=== PATIENT | male | born 1995 | race Caucasian/White ===

== ENCOUNTER 2017-04-15 11:01 | Inpatient (IN) ==
--- NOTE | 2017-04-15 11:11 | Emergency Department Note ---
Disposition Clinical Impression: Suicidal ideation Disposition: Admitted As Inpatient Condition: Good Referrals: NONE,PCP [Primary Care Provider] - Time of Disposition: 12:33 Psych HPI - General Chief Complaint: ED Psychiatric Symptoms Stated Complaint: WANTS [facility] TO COME GET HIM. H/I & S/I Time Seen by Provider: 04/15/17 11:05 Source: patient, EMS Mode of arrival: EMS Limitations: no limitations Nursing Notes Reviewed: Yes Vital Signs Reviewed: Yes - History of Present Illness HPI Narrative: 21-year-old male history of psychiatric illness resents to the ED via EMS from a halfway at [facility] for psychiatric evaluation. He reports suicidal and homicidal ideation. Supposedly patient attempted to summon [facility]. He denies any physical complaints. States he feels hopeless as he has no one to talk to. One of the directors from the group [employer] present at the room to assist with a history. States today he was acting himself being very violent voicing threats of hurting others as well as himself. Her holes in the wall as he is torn up his room. Yesterday he was speaking to Lucifer. Today he has been seen watching [employer] videos on different ways to attempt suicide. One of the videos was a man placing a gun in his mouth. He denies any plan at this time. Denies any overdose of his medication. He has been taking his medication as he has been monitored. No alcohol or recreational drug use. He was place in the halfway 6 months ago as a child the state. No prior evaluation here. No history of suicide attempts. Denies any headache, chest pain, shortness of breath, abdominal pain. No extremity pain. No obvious signs of trauma. Pt complaint: suicidal ideation, feels depressed - Related Data Allergies Allergy/AdvReac Type Severity Reaction Status Date / Time No Known Allergies Allergy Verified 04/15/17 11:23 All systems ED: reviewed and negative except as stated. Review of Systems: As Per HPI Constitutional: Denies: fever, chills Eyes: Denies: vision change Cardiovascular: Denies: chest pain, palpitations Respiratory: Denies: cough, dyspnea Gastrointestinal: Denies: abdominal pain, nausea, vomiting Genitourinary: Denies: urgency, dysuria Musculoskeletal: Denies: back pain, neck pain Integumentary: Denies: rash, abrasion, lesions Neurological: Denies: headache, weakness Psychiatric: Reports: anxiety, depression, suicidal thoughts, homicidal thoughts Past Medical History - Past Medical History Attestation: Yes The following information was validated with the patient. Source: patient Medical history: Reports: no medical history Psychiatric history: Reports: depression - Social History Smoking Status: Never smoker Smokeless Tobacco Status: No Alcohol use: Reports: none Drug use: Reports: none Physical Exam - General Limitations: no limitations General appearance: alert, in no apparent distress - Head Head exam: atraumatic, normocephalic, normal inspection - Eye Eye exam: Present: normal appearance, PERRL, EOMI - ENT ENT exam: normal exam, normal oropharynx, mucous membranes moist - Neck Neck exam: Present: normal inspection, full ROM, trachea midline. Absent: tenderness - Chest Chest inspection: Present: normal inspection, symmetric chest wall rise. Absent : tenderness - Respiratory Respiratory exam: Present: normal lung sounds bilaterally. Absent: respiratory distress, wheezes - Cardiovascular Cardiovascular exam: Present: regular rate, normal rhythm, normal heart sounds - Abdominal Exam Abdominal exam: Present: soft, Non-Tender, normal bowel sounds. Absent: tenderness, distention, guarding, rebound, rigidity - Extremities Exam Extremities exam: Present: normal inspection, full ROM, normal capillary refill. Absent: tenderness, pedal edema - Expanded Upper Extremity Exam Shoulder exam: Present: normal inspection, full ROM. Absent: tenderness Arm exam: Present: normal inspection, full ROM. Absent: tenderness Elbow exam: Present: normal inspection, full ROM. Absent: tenderness Forearm/Wrist exam: Present: normal inspection, full ROM. Absent: tenderness Hand exam: Present: normal inspection, full ROM. Absent: tenderness Vascular exam: Normal: capillary refill, radial pulse - Expanded Lower Extremity Exam Hip/Pelvis exam: Present: normal inspection, full ROM. Absent: tenderness Upper leg exam: Present: normal inspection, full ROM. Absent: tenderness Knee exam: Present: normal inspection, full ROM. Absent: tenderness Lower leg exam: Present: normal inspection, full ROM. Absent: tenderness Ankle exam: Present: normal inspection, full ROM. Absent: tenderness Foot/toe exam: Present: normal inspection, full ROM. Absent: tenderness Neurovascular/Tendon exam: Present: normal capillary refill. Absent: motor deficit, sensory deficit, tendon deficit - Back Exam Back exam: Present: normal inspection, full ROM. Absent: tenderness, vertebral tenderness - Neurological Exam Neurological exam: Present: alert, oriented X3, CN II-XII intact - Expanded Neurological Exam Patient oriented to: Present: person, place, time Speech: Present: fluid speech Cranial nerves: EOM function (II, III, IV, ): Normal, facial sensation (V): Normal, facial palsy (VII): Normal, gag reflex (IX): Normal, spinal accessory function (XI): Normal, tongue deviation (XII): Normal Cerebellar function: normal gait Motor strength - LUE: 5/5 Motor strength - RUE: 5/5 Motor strength - LLE: 5/5 Motor strength - RLE: 5/5 Upper motor neuron exam: nasreen neglect: Absent bilaterally Sensory exam upper extremity: light touch: Normal Sensory exam lower extremity: light touch: Normal - Psychiatric Psychiatric exam: Present: depressed, flat affect, homicidal ideation, suicidal ideation - Skin Skin exam: Present: warm, dry, intact, normal color Course - Reevaluation(s) Reevaluation #1: psychiatry called at 1132 for evaluation. Currently in the room evaluating the patient. Labs are unremarkable. No drugs found in the urine. Time: 11:40 Reevaluation #2: Patient has been accepted for admission to . Request pink slip, form was filled out by myself. Patient is in stable condition, appropriate for admission. Impression is suicidal ideation. Time: 12:34 Vital Signs Temperature 98.5 F 04/15/17 11:03 Pulse Rate 73 04/15/17 11:03 Respiratory Rate 16 04/15/17 11:03 Blood Pressure 117/76 04/15/17 11:03 O2 Sat by Pulse Oximetry 97 04/15/17 11:03 Temperature 98.5 F 04/15/17 11:03 Pulse Rate 73 04/15/17 11:03 Respiratory Rate 16 04/15/17 11:03 Blood Pressure 117/76 04/15/17 11:03 O2 Sat by Pulse Oximetry 97 04/15/17 11:03 Oxygen Delivery Oxygen Delivery Room Air Psych - Lab Data Lab results reviewed: Yes I reviewed the patient's lab results. Result diagrams: 04/15/17 11:17 04/15/17 11:17 Lab Results 04/15/17 04/15/17 04/15/17 Range/Units 11:11 11:11 11:17 WBC 7.5 (4.3-11.1) K/mcL RBC 4.64 (4.19-5.50) M/mcL Hgb 14.1 (12.9-16.9) g/dL Hct 41.5 (37.5-50.1) % MCV 89.4 (83.0-100.0) fL MCH 30.4 (28.0-33.3) pg MCHC 34.0 (31.6-35.5) g/dL RDW 12.2 (11.5-14.5) % Plt Count 209 (140-400) K/mcL MPV 10.2 (9.4-12.4) fL Immature Gran % 1.1 (0-4) % Seg Neutrophils % 51.3 % Lymphocytes % 35.2 % Monocytes % 8.3 % Eosinophils % 3.4 % Basophils % 0.7 % Neutrophils # 3.8 (1.6-8.9) K/mcL Lymphocytes # 2.6 (0.6-4.6) K/mcL Monocytes # 0.6 (0.0-1.3) K/mcL Eosinophils # 0.3 (0.0-0.6) K/mcL Basophils # 0.1 (0.0-0.2) K/mcL Sodium (136-145) mEq/L Potassium (3.5-4.5) mEq/L Chloride (98-109) mEq/L Carbon Dioxide (19-29) mEq/L BUN (8-26) mg/dL Creatinine (0.72-1.25) mg/dL Est GFR ( Amer) Est GFR (Non-Af Amer) BUN/Creatinine Ratio (6-26) Glucose (70-99) mg/dL Calculated Osmolality (280-300) Calcium (8.6-10.8) mg/dL Ur Specimen Adequacy See below A Urine Color Yellow (Yellow) Urine Clarity Clear (Clear) Urine pH 7.5 (5.0-8.0) pH Units Ur Specific [place] 1.013 (1.010-1.025) Urine Protein Trace (Neg-Trace) mg/dL Urine Glucose (UA) Normal (Normal) mg/dL Urine Ketones Negative (Negative) mg/dL Urine Blood Negative (Negative) Urine Nitrite Negative (Negative) Urine Bilirubin Negative (Negative) Urine Urobilinogen Normal (Normal) mg/dL Ur Leukocyte Esterase Negative (Negative) Salicylates (15-30) mg/dL Urine Opiates Screen Negative (Bwqgje=828) ng/mL Acetaminophen (10-30) mcg/mL Ur Barbiturates Screen Negative (Odelcy=960) ng/mL Ur Phencyclidine Scrn Negative (Cutoff=25) ng/mL Ur Amphetamines Screen Negative (Eouijv=8243) ng/mL U Benzodiazepines Scrn Negative (Tfaclc=619) ng/mL Urine Cocaine Screen Negative (Cutoff= 300) ng/mL U Marijuana (THC) Screen Negative (Cutoff = 50) ng/mL Ethyl Alcohol (0-10) mg/dL 04/15/17 Range/Units 11:17 WBC (4.3-11.1) K/mcL RBC (4.19-5.50) M/mcL Hgb (12.9-16.9) g/dL Hct (37.5-50.1) % MCV (83.0-100.0) fL MCH (28.0-33.3) pg MCHC (31.6-35.5) g/dL RDW (11.5-14.5) % Plt Count (140-400) K/mcL MPV (9.4-12.4) fL Immature Gran % (0-4) % Seg Neutrophils % % Lymphocytes % % Monocytes % % Eosinophils % % Basophils % % Neutrophils # (1.6-8.9) K/mcL Lymphocytes # (0.6-4.6) K/mcL Monocytes # (0.0-1.3) K/mcL Eosinophils # (0.0-0.6) K/mcL Basophils # (0.0-0.2) K/mcL Sodium 141 (136-145) mEq/L Potassium 4.0 (3.5-4.5) mEq/L Chloride 103 (98-109) mEq/L Carbon Dioxide 33 H (19-29) mEq/L BUN 8 (8-26) mg/dL Creatinine 0.77 (0.72-1.25) mg/dL Est GFR ( Amer) > 60 Est GFR (Non-Af Amer) > 60 BUN/Creatinine Ratio 10 (6-26) Glucose 89 (70-99) mg/dL Calculated Osmolality 290 (280-300) Calcium 10.1 (8.6-10.8) mg/dL Ur Specimen Adequacy Urine Color (Yellow) Urine Clarity (Clear) Urine pH (5.0-8.0) pH Units Ur Specific [place] (1.010-1.025) Urine Protein (Neg-Trace) mg/dL Urine Glucose (UA) (Normal) mg/dL Urine Ketones (Negative) mg/dL Urine Blood (Negative) Urine Nitrite (Negative) Urine Bilirubin (Negative) Urine Urobilinogen (Normal) mg/dL Ur Leukocyte Esterase (Negative) Salicylates < 5.0 L (15-30) mg/dL Urine Opiates Screen (Tafyji=518) ng/mL Acetaminophen < 1.0 L (10-30) mcg/mL Ur Barbiturates Screen (Vprzru=163) ng/mL Ur Phencyclidine Scrn (Cutoff=25) ng/mL Ur Amphetamines Screen (Ajjwaa=6137) ng/mL U Benzodiazepines Scrn (Cvdyfc=651) ng/mL Urine Cocaine Screen (Cutoff= 300) ng/mL U Marijuana (THC) Screen (Cutoff = 50) ng/mL Ethyl Alcohol < 10 (0-10) mg/dL Psychiatric Medical Clearance - Medical Clearance Checklist Medical History: No Social History Section defined Current Vitals: Last Vital Signs Temp 98.5 F 04/15/17 11:03 Pulse 73 04/15/17 11:03 Resp 16 04/15/17 11:03 BP 117/76 04/15/17 11:03 Pulse Ox 97 04/15/17 11:03 Psychiatric Lab Panel: Drug Levels and Toxicity 04/15/17 04/15/17 11:11 11:17 Urine Opiates Screen Negative Acetaminophen < 1.0 L Ur Barbiturates Screen Negative Ur Phencyclidine Scrn Negative Ur Amphetamines Screen Negative U Benzodiazepines Scrn Negative Urine Cocaine Screen Negative U Marijuana (THC) Screen Negative Ethyl Alcohol < 10 Abnormal Labs: Abnormal lab results Carbon Dioxide 33 mEq/L (19-29) H 04/15/17 11:17 Ur Specimen Adequacy See below A 04/15/17 11:11 Salicylates < 5.0 mg/dL (15-30) L 04/15/17 11:17 Acetaminophen < 1.0 mcg/mL (10-30) L 04/15/17 11:17 Statement of Medical Clearance: I have evaluated the patient, reviewed diagnostic information, and certify that the patient's medical condition is sufficiently stable that transfer to the psychiatric unit does not pose a significant risk of deterioration.
[2017-04-15 11:25] LABS: Amphetamine Screen,Urine Negative ng/mL (Cutoff=1000); Barbiturate Screen,Urine Negative ng/mL (Cutoff=200); Benzodiazepines Screen,Urine Negative ng/mL (Cutoff=200); Cannabinoid Screen,Urine Negative ng/mL (Cutoff = 50); Cocaine Screen,Urine Negative ng/mL (Cutoff= 300); Opiate Screen,Urine Negative ng/mL (Cutoff=300); Phencyclidine Screen,Urine Negative ng/mL (Cutoff=25)
[2017-04-15 11:26] LABS: Bilirubin,Urine Negative (Negative); Blood,Urine Negative (Negative); Color,Urine Yellow (Yellow); Glucose,Urine (UA) Normal (Normal); Ketones,Urine Negative (Negative); Leukocyte Esterase,Urine Negative (Negative); Nitrite,Urine Negative (Negative); PH,Urine 7.5 pH Units (5.0-8.0); Protein,Urine Trace mg/dL (Neg-Trace); Specific Gravity,Urine 1.013 (1.010-1.025); Urobilinogen,Urine Normal (Normal)
[2017-04-15 11:26] LABS: Basophils # 0.1 K/mcL (0.0-0.2); Basophils % 0.7 %; Eosinophils # 0.3 K/mcL (0.0-0.6); Eosinophils % 3.4 %; Hematocrit 41.5 % (37.5-50.1); Hemoglobin 14.1 g/dL (12.9-16.9); Immature Granulocytes % 1.1 % (0-4); Lymphocytes # 2.6 K/mcL (0.6-4.6); Lymphocytes % 35.2 %; Mean Corpuscular Hemoglobin 30.4 pg (28.0-33.3); Mean Corpuscular Volume 89.4 fL (83.0-100.0); Mean Platelet Volume 10.2 fL (9.4-12.4); Monocytes # 0.6 K/mcL (0.0-1.3); Monocytes % 8.3 %; Neutrophils # 3.8 K/mcL (1.6-8.9); Platelet Count 209 K/mcL (140-400); Red Blood Count 4.64 M/mcL (4.19-5.50); Red Cell Distribution Width 12.2 % (11.5-14.5); Segmented Neutrophils % 51.3 %
[2017-04-15 11:27] LABS: Clarity,Urine Clear (Clear)
[2017-04-15 11:40] LABS: BUN/Creatinine Ratio 10 (6-26); Blood Urea Nitrogen 8 mg/dL (8-26); Calcium 10.1 mg/dL (8.6-10.8); Carbon Dioxide 33 mEq/L (19-29); Chloride 103 mEq/L (98-109); Glucose 89 mg/dL (70-99); Osmolality,Calculated 290 (280-300); Sodium 141 mEq/L (136-145); eGFR For African Americans > 60; eGFR For Non-African Americans > 60
[2017-04-15 11:41] LABS: Acetaminophen < 1.0 mcg/mL (10-30); Ethanol < 10 mg/dL (0-10); Salicylate < 5.0 mg/dL (15-30)
--- NOTE | 2017-04-15 12:32 | Emergency Department Note ---
Disposition Clinical Impression: Suicidal ideation Disposition: Admitted As Inpatient Condition: Good General Adult HPI - General Chief complaint: ED Psychiatric Symptoms Stated complaint: TRIED TO [employer] [employer] Time Seen by Provider: 04/15/17 11:05 Source: patient, EMS Mode of arrival: EMS Limitations: no limitations - History of Present Illness Pain Scale: 0 - Related Data Home Medications Medication Instructions Recorded Confirmed OXcarbazepine [Trileptal] 150 mg PO BID 04/15/17 04/15/17 Sertraline [Zoloft] 100 mg PO DAILY 04/15/17 04/15/17 Trazodone HCl 200 mg PO HS 04/15/17 04/15/17 risperiDONE [Risperidone] 1 mg PO BID 04/15/17 04/15/17 Allergies Allergy/AdvReac Type Severity Reaction Status Date / Time No Known Allergies Allergy Verified 04/15/17 11:23 Constitutional: Denies: fever, chills Eyes: Denies: vision change Cardiovascular: Denies: chest pain, palpitations Respiratory: Denies: cough, dyspnea Gastrointestinal: Denies: abdominal pain, nausea, vomiting Genitourinary: Denies: urgency, dysuria Musculoskeletal: Denies: back pain, neck pain Integumentary: Denies: rash, abrasion, lesions Neurological: Denies: headache, weakness Psychiatric: Reports: anxiety, depression, suicidal thoughts, homicidal thoughts Past Medical History - Past Medical History Medical history: Reports: no medical history Psychiatric history: Reports: depression - Social History Smoking Status: Never smoker Smokeless Tobacco Status: No Alcohol use: Reports: none Drug use: Reports: none Physical Exam - General Limitations: no limitations General appearance: alert, in no apparent distress Course - Reevaluation(s) Reevaluation #1: I saw the patient with the resident, Dr. Sebastian. Patient presents with report of depression and suicidal ideation but also hearing the voice of Lucifer talking to him. He has no medical complaints. Medical screening examination is unremarkable. Patient has been seen by psychiatry already. They have just called up and asked us to fill out a pink slip and put in the admission request as they want to taken downstairs and admitted him for psychiatric care. We have taken care of those requests. Patient will be admitted to psychiatry. Time: 12:31 Vital Signs Temperature 98.5 F 04/15/17 11:03 Pulse Rate 73 04/15/17 11:03 Respiratory Rate 16 04/15/17 11:03 Blood Pressure 117/76 04/15/17 11:03 O2 Sat by Pulse Oximetry 97 04/15/17 11:03 Temperature 98.5 F 04/15/17 11:03 Pulse Rate 73 04/15/17 11:03 Respiratory Rate 0 04/15/17 13:20 Blood Pressure 0/0 04/15/17 13:20 O2 Sat by Pulse Oximetry 97 04/15/17 11:03 Oxygen Delivery Oxygen Delivery Room Air Medical Decision Making - Lab Data Result diagrams: 04/15/17 11:17 04/15/17 11:17 Lab Results 04/15/17 04/15/17 04/15/17 Range/Units 11:11 11:11 11:17 WBC 7.5 (4.3-11.1) K/mcL RBC 4.64 (4.19-5.50) M/mcL Hgb 14.1 (12.9-16.9) g/dL Hct 41.5 (37.5-50.1) % MCV 89.4 (83.0-100.0) fL MCH 30.4 (28.0-33.3) pg MCHC 34.0 (31.6-35.5) g/dL RDW 12.2 (11.5-14.5) % Plt Count 209 (140-400) K/mcL MPV 10.2 (9.4-12.4) fL Immature Gran % 1.1 (0-4) % Seg Neutrophils % 51.3 % Lymphocytes % 35.2 % Monocytes % 8.3 % Eosinophils % 3.4 % Basophils % 0.7 % Neutrophils # 3.8 (1.6-8.9) K/mcL Lymphocytes # 2.6 (0.6-4.6) K/mcL Monocytes # 0.6 (0.0-1.3) K/mcL Eosinophils # 0.3 (0.0-0.6) K/mcL Basophils # 0.1 (0.0-0.2) K/mcL Sodium (136-145) mEq/L Potassium (3.5-4.5) mEq/L Chloride (98-109) mEq/L Carbon Dioxide (19-29) mEq/L BUN (8-26) mg/dL Creatinine (0.72-1.25) mg/dL Est GFR ( Amer) Est GFR (Non-Af Amer) BUN/Creatinine Ratio (6-26) Glucose (70-99) mg/dL Calculated Osmolality (280-300) Calcium (8.6-10.8) mg/dL Ur Specimen Adequacy See below A Urine Color Yellow (Yellow) Urine Clarity Clear (Clear) Urine pH 7.5 (5.0-8.0) pH Units Ur Specific [place] 1.013 (1.010-1.025) Urine Protein Trace (Neg-Trace) mg/dL Urine Glucose (UA) Normal (Normal) mg/dL Urine Ketones Negative (Negative) mg/dL Urine Blood Negative (Negative) Urine Nitrite Negative (Negative) Urine Bilirubin Negative (Negative) Urine Urobilinogen Normal (Normal) mg/dL Ur Leukocyte Esterase Negative (Negative) Salicylates (15-30) mg/dL Urine Opiates Screen Negative (Kuksbg=778) ng/mL Acetaminophen (10-30) mcg/mL Ur Barbiturates Screen Negative (Fudhtl=920) ng/mL Ur Phencyclidine Scrn Negative (Cutoff=25) ng/mL Ur Amphetamines Screen Negative (Wcqagf=1281) ng/mL U Benzodiazepines Scrn Negative (Ktilou=479) ng/mL Urine Cocaine Screen Negative (Cutoff= 300) ng/mL U Marijuana (THC) Screen Negative (Cutoff = 50) ng/mL Ethyl Alcohol (0-10) mg/dL /16/17 Range/Units 11:17 WBC (4.3-11.1) K/mcL RBC (4.19-5.50) M/mcL Hgb (12.9-16.9) g/dL Hct (37.5-50.1) % MCV (83.0-100.0) fL MCH (28.0-33.3) pg MCHC (31.6-35.5) g/dL RDW (11.5-14.5) % Plt Count (140-400) K/mcL MPV (9.4-12.4) fL Immature Gran % (0-4) % Seg Neutrophils % % Lymphocytes % % Monocytes % % Eosinophils % % Basophils % % Neutrophils # (1.6-8.9) K/mcL Lymphocytes # (0.6-4.6) K/mcL Monocytes # (0.0-1.3) K/mcL Eosinophils # (0.0-0.6) K/mcL Basophils # (0.0-0.2) K/mcL Sodium 141 (136-145) mEq/L Potassium 4.0 (3.5-4.5) mEq/L Chloride 103 (98-109) mEq/L Carbon Dioxide 33 H (19-29) mEq/L BUN 8 (8-26) mg/dL Creatinine 0.77 (0.72-1.25) mg/dL Est GFR ( Amer) > 60 Est GFR (Non-Af Amer) > 60 BUN/Creatinine Ratio 10 (6-26) Glucose 89 (70-99) mg/dL Calculated Osmolality 290 (280-300) Calcium 10.1 (8.6-10.8) mg/dL Ur Specimen Adequacy Urine Color (Yellow) Urine Clarity (Clear) Urine pH (5.0-8.0) pH Units Ur Specific [place] (1.010-1.025) Urine Protein (Neg-Trace) mg/dL Urine Glucose (UA) (Normal) mg/dL Urine Ketones (Negative) mg/dL Urine Blood (Negative) Urine Nitrite (Negative) Urine Bilirubin (Negative) Urine Urobilinogen (Normal) mg/dL Ur Leukocyte Esterase (Negative) Salicylates < 5.0 L (15-30) mg/dL Urine Opiates Screen (Rngkcf=135) ng/mL Acetaminophen < 1.0 L (10-30) mcg/mL Ur Barbiturates Screen (Kihqxo=700) ng/mL Ur Phencyclidine Scrn (Cutoff=25) ng/mL Ur Amphetamines Screen (Pfiloj=8243) ng/mL U Benzodiazepines Scrn (Fguufl=760) ng/mL Urine Cocaine Screen (Cutoff= 300) ng/mL U Marijuana (THC) Screen (Cutoff = 50) ng/mL Ethyl Alcohol < 10 (0-10) mg/dL Attestation Statement - Attestation Attestation: I, Dr. Brito, examined this patient and my medical decision-making was reviewed with the Resident Physician, Dr. Sebastian. I agree with the documented findings, disposition and treatment plan as described except to the extent set forth below. Please see my progress note for details.
[2017-04-15] MEDS ORDERED: Mag Hydrox/Al Hydrox/Simeth 30 ML UDC PO PRN (16:31)
[2017-04-15] MEDS ORDERED: *HR* LORazepam 1 MG TABLET PO PRN (16:31)
[2017-04-15] MEDS ORDERED: hydrOXYzine pamoate 25 MG CAPSULE PO PRN (16:31)
[2017-04-15] MEDS ORDERED: MOM Conc 10 ML UD.LIQ PO PRN (16:31)
[2017-04-15] MEDS ORDERED: Haloperidol Lactate 5 MG/ML VIAL IM PRN (16:31)
[2017-04-15] MEDS ORDERED: *HR* LORazepam 2 MG/ML VIAL IM PRN (16:31)
[2017-04-15] MEDS: Acetaminophen 325 MG TABLET PO PRN (16:53)
[2017-04-15] MEDS: risperiDONE 1 MG TABLET PO SCH ×2 (16:53→21:02)
[2017-04-15] MEDS: traZODone 50 MG TABLET PO PRN (21:02)
[2017-04-16] MEDS: Acetaminophen 325 MG TABLET PO PRN (03:20)
[2017-04-16] MEDS: risperiDONE 1 MG TABLET PO SCH ×2 (09:52→20:22)
--- NOTE | 2017-04-16 12:31 | Psychiatry History & Physical ---
Date of Encounter: 04/16/17 Time of Encounter: 12:15 History of Present Illness Patient Stated Chief Complaint: i want to go home Medicare Admission Attestation: For traditional Medicare patients the provided hospital inpatient services are reasonable and necessary and in the case of services not specified as inpatient -only under 42 CFR 419.22 (n), that they are appropriately provided as inpatient services in accordance 42 CFR 412.3. For Critical Access Hospital the patient may reasonably be expected to be discharged or transferred to a hospital within 96 hours after admission to the Critical Access Hospital. History of Present Illness: Mr. Hernandez is a 21 year old male admitted from the emergency department, brought in by EMS from [facility] because patient was threatening to hurt herself or others . According to the chart review , patient has been angry hearing voices of Lucifer and watching YouTube videos how to attempt suicide. he was violent and threathened to hurt self/others collateral was taken from staff from [facility]. At present patient is very irritable and angry and unable to give history he is focused on being discharged today because he was only supposed to be here for 1 day he is he is denying any auditory hallucinations denying any depression or suicidal ideation or thoughts of hurting anybody else, he is answering no to all questions, he escalated when told he will be not discharged today. He agreed he punched the door and he does not know why he did that, he has borderline intellectual functioning and at present he is a very poor historian, most and formation from the emergency department notes. Patient has been prescribed medication and will get collateral and history from his physician and from [facility]. Patient was very angry and sitting on the edge of the chair during session and unable to complete the session because of his escalating anger. Past Med Surg Social Fam HX - Past Medical History Medical history: no medical history - Past Psychiatric History Psychiatric history: Reports: schizophrenia Family psychiatric history: Unknown Family History of Suicide: Unknown - Social History Smoking Status: Never smoker Smokeless Tobacco Status: No Alcohol use: none Drug use: none Medications & Allergies OXcarbazepine [Trileptal] 150 mg PO BID 04/15/17 [History] Sertraline [Zoloft] 100 mg PO DAILY 04/15/17 [History] Trazodone HCl 200 mg PO HS 04/15/17 [History] risperiDONE [Risperidone] 1 mg PO BID 04/15/17 [History] 3 Allergy/AdvReac Type Severity Reaction Status Date / Time No Known Allergies Allergy Verified 04/15/17 11:23 Review of Systems Constitutional: Denies: fever, chills, weakness, weight change Eyes: Denies: eye pain, vision change Ears, Nose, Throat: Denies: ear pain, throat pain, dental pain, hearing loss, congestion Cardiovascular: Denies: chest pain, palpitations, dyspnea on exertion Respiratory: Denies: cough, dyspnea, wheezes Gastrointestinal: Denies: abdominal pain, nausea, vomiting, diarrhea, constipation Genitourinary male: Denies: urgency, dysuria, frequency, genital lesions Genitourinary female: Denies: urgency, dysuria, frequency, abnormal menses, dyspareunia Musculoskeletal: Denies: joint swelling, joint pain Integumentary: Denies: rash, lesions, pruritus Neurological: Denies: headache, weakness, numbness, memory loss Psychiatric: Reports: auditory hallucinations, irritability, mood swings Endocrine: Denies: fatigue, heat or cold intolerance Hematologic/Lymphatic: Denies: easy bruising, lymphadenopathy Allergic/Immunologic: Denies: urticaria, itchy eyes Mental Status Exam Patient orientation: Yes Person, Yes Place Level of alertness: Alert Patient appearance: Appropriate Behavior: agitated, hostile Psychomotor activity: Agitated Eye contact: Minimal Contact Mood description: Angry, Irritable Affect description: constricted Speech pattern: Delayed Speech volume: Normal Thought process: [place] Thought content: Yes Preoccupation Perceptual disturbances: Yes Auditory hallucinations Attention span: Unable to Sustain Attention Patient reliability: Not Reliable Historian Intelligence estimate: Below Average Judgment: Poor Insight: None Exam - HEENT Head exam IM: Present: atraumatic, normal inspection, normocephalic Eye exam IM: Present: normal appearance - Neurological Neurological exam IM: Present: alert, CN II-XII intact, normal gait (unable to exam patient secondary to his mental condition and he was exam. at ED.) Results - Vital Signs Vital signs: Temp Pulse Resp BP Pulse Ox 97.8 F 72 16 107/49 97 04/16/17 09:00 04/16/17 09:00 04/16/17 09:00 04/16/17 09:00 04/15/17 11:03 - Labs Labs: Laboratory Last Values WBC 7.5 K/mcL (4.3-11.1) 04/15/17 11:17 RBC 4.64 M/mcL (4.19-5.50) 04/15/17 11:17 Hgb 14.1 g/dL (12.9-16.9) 04/15/17 11:17 Hct 41.5 % (37.5-50.1) 04/15/17 11:17 MCV 89.4 fL (83.0-100.0) 04/15/17 11:17 MCH 30.4 pg (28.0-33.3) 04/15/17 11:17 MCHC 34.0 g/dL (31.6-35.5) 04/15/17 11:17 RDW 12.2 % (11.5-14.5) 04/15/17 11:17 Plt Count 209 K/mcL (140-400) 04/15/17 11:17 MPV 10.2 fL (9.4-12.4) 04/15/17 11:17 Immature Gran % 1.1 % (0-4) 04/15/17 11:17 Seg Neutrophils % 51.3 % 04/15/17 11:17 Lymphocytes % 35.2 % 04/15/17 11:17 Monocytes % 8.3 % 04/15/17 11:17 Eosinophils % 3.4 % 04/15/17 11:17 Basophils % 0.7 % 04/15/17 11:17 Neutrophils # 3.8 K/mcL (1.6-8.9) 04/15/17 11:17 Lymphocytes # 2.6 K/mcL (0.6-4.6) 04/15/17 11:17 Monocytes # 0.6 K/mcL (0.0-1.3) 04/15/17 11:17 Eosinophils # 0.3 K/mcL (0.0-0.6) 04/15/17 11:17 Basophils # 0.1 K/mcL (0.0-0.2) 04/15/17 11:17 Sodium 141 mEq/L (136-145) 04/15/17 11:17 Potassium 4.0 mEq/L (3.5-4.5) 04/15/17 11:17 Chloride 103 mEq/L (98-109) 04/15/17 11:17 Carbon Dioxide 33 mEq/L (19-29) H 04/15/17 11:17 BUN 8 mg/dL (8-26) 04/15/17 11:17 Creatinine 0.77 mg/dL (0.72-1.25) 04/15/17 11:17 Est GFR ( Amer) > 60 04/15/17 11:17 Est GFR (Non-Af Amer) > 60 04/15/17 11:17 BUN/Creatinine Ratio 10 (6-26) 04/15/17 11:17 Glucose 89 mg/dL (70-99) 04/15/17 11:17 Calculated Osmolality 290 (280-300) 04/15/17 11:17 Calcium 10.1 mg/dL (8.6-10.8) 04/15/17 11:17 Ur Specimen Adequacy See below A 04/15/17 11:11 Urine Color Yellow (Yellow) 04/15/17 11:11 Urine Clarity Clear (Clear) 04/15/17 11:11 Urine pH 7.5 pH Units (5.0-8.0) 04/15/17 11:11 Ur Specific [place] 1.013 (1.010-1.025) 04/15/17 11:11 Urine Protein Trace mg/dL (Neg-Trace) 04/15/17 11:11 Urine Glucose (UA) Normal mg/dL (Normal) 04/15/17 11:11 Urine Ketones Negative mg/dL (Negative) 04/15/17 11:11 Urine Blood Negative (Negative) 04/15/17 11:11 Urine Nitrite Negative (Negative) 04/15/17 11:11 Urine Bilirubin Negative (Negative) 04/15/17 11:11 Urine Urobilinogen Normal mg/dL (Normal) 04/15/17 11:11 Ur Leukocyte Esterase Negative (Negative) 04/15/17 11:11 Salicylates < 5.0 mg/dL (15-30) L 04/15/17 11:17 Urine Opiates Screen Negative ng/mL (Zittds=482) 04/15/17 11:11 Acetaminophen < 1.0 mcg/mL (10-30) L 04/15/17 11:17 Ur Barbiturates Screen Negative ng/mL (Pbuqnn=447) 04/15/17 11:11 Ur Phencyclidine Scrn Negative ng/mL (Cutoff=25) 04/15/17 11:11 Ur Amphetamines Screen Negative ng/mL (Hdkcmb=5488) 04/15/17 11:11 U Benzodiazepines Scrn Negative ng/mL (Snddnb=339) 04/15/17 11:11 Urine Cocaine Screen Negative ng/mL (Cutoff= 300) 04/15/17 11:11 U Marijuana (THC) Screen Negative ng/mL (Cutoff = 50) 04/15/17 11:11 Ethyl Alcohol < 10 mg/dL (0-10) 04/15/17 11:17 Assessment and Plan (1) Unspecified psychosis Current visit: Yes Status: Acute Plan: Admit inpatient for safety and stabilization, Close observation, Suicide Precautions per unit protocol, Encourage participation in unit milieu, Group Therapy, Monitor sleep, Monitor appetite, Family/Supportive other meeting, Other Additional Plan: patient admitted to inpatient for stabilization of violent behaviour and suicidal and homicidal ideas. Risks, benefits, side effects, alternatives discussed w/pt: Yes Patient agreeable to treatment: Yes Plans for Post Hospital Care: Transfer Other Estimated Length of Stay (Days): 4 Qualifiers: Psychosis type: unspecified psychosis type Qualified Code(s): F29 - Unspecified psychosis not due to a substance or known physiological condition (2) Suicidal ideation Current visit: Yes Status: Acute Additional Plan: close monitoring and structure enviorment and medication management started.
[2017-04-16] MEDS: Divalproex (12 HR) 250 MG TABLET PO SCH ×2 (15:25→20:23)
[2017-04-16] MEDS: traZODone 50 MG TABLET PO PRN (20:23)
[2017-04-16] MEDS ORDERED: Divalproex (12 HR) 250 MG TABLET PO SCH (21:00)
[2017-04-17] MEDS ORDERED: Divalproex (12 HR) 500 MG TABLET PO SCH (09:00)
[2017-04-17] MEDS: risperiDONE 1 MG TABLET PO SCH ×2 (09:14→20:19)
--- NOTE | 2017-04-17 12:48 | Psychiatry Progress Note ---
Date of Encounter: 04/17/17 Time of Encounter: 12:30 Subjective Interval history: Patient seen today , case d/w treatment team . records from his PCP reviewed patients meds reviewed. as per team , patient does not have guardian at present. he has h/o anger and explosive outbursts as per notes. Has dx of oppositional defiant disorder, Anxiety , depression , and scoliosis s/ p surgery. he is not as angry as yesterday , states slept well, miguel states appetite is good and denies any suicidal thoughts but is preoccupied and focused on discharge. he agrees zoloft helps him. denies side effects. Review of Systems Psychiatric: Reports: depression, suicidal ideation, irritability, mood swings Objective: Exam Patient orientation: Yes Person, Yes Time Level of alertness: Alert Patient appearance: Appropriate Behavior: cooperative, guarded Psychomotor activity: Normal Eye contact: Minimal Contact Mood description: Other Affect description: blunted Speech pattern: Slowed Speech volume: Loud Thought process: [place] Thought content: Yes Preoccupation Judgment: Limited Insight: Minimal Results - Vital Signs Vital Signs: Temp Pulse Resp BP Pulse Ox 97.8 F 62 16 104/54 97 04/17/17 09:00 04/17/17 09:00 04/17/17 09:00 04/17/17 09:00 04/15/17 11:03 Assessment and Plan (1) Unspecified psychosis Current visit: Yes Status: Acute Risks, benefits, side effects, alternatives discussed w/pt: Yes Patient agreeable to treatment: Yes Qualifiers: Psychosis type: unspecified psychosis type Qualified Code(s): F29 - Unspecified psychosis not due to a substance or known physiological condition (2) Suicidal ideation Current visit: Yes Status: Acute (3) Intermittent explosive disorder Current visit: Yes Status: Acute Plan: Continue hospitalization, Suicide Precautions per unit protocol, Encourage participation in unit milieu, Group Therapy, Monitor sleep, Monitor appetite Risks, benefits, side effects, alternatives discussed w/pt: Yes Patient agreeable to treatment: Yes (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 Baeza for primary health care and medication management services.)
--- NOTE | 2017-04-17 13:10 | Psychiatry Progress Note ---
Date of Encounter: 04/17/17 Time of Encounter: 13:00 Subjective Interval history: Patient seen today case d/w treatment team. patient remains same and c/o body aches and feeling tired , she wants me to raise her motrin as she is also not on neurontin. she agrees having lot of cravings and anxious about it. she remains delusional and has a/v hallucinations. like seeing black shadows , recieving messages. she denies side effects. she is willing to take naltrexone and side effects explained and informed consent obtained. She has agreed to go to inpatient rehab., she has never been to one. Review of Systems Psychiatric: Reports: depression, auditory hallucinations, visual hallucinations , difficulty concentrating, irritability, mood swings Objective: Exam Patient orientation: Yes Person, Yes Time, Yes Place Level of alertness: Alert Patient appearance: Appropriate Behavior: cooperative, anxious Psychomotor activity: Normal Eye contact: Maintains Eye Contact Mood description: Anxious Affect description: congruent with mood Speech pattern: Slowed Speech volume: Normal Thought process: Circumstantial Thought content: Yes Preoccupation, Yes Grandiose delusion Perceptual disturbances: Yes Reacting to internal stimuli Judgment: Limited Insight: Minimal Results - Vital Signs Vital Signs: Temp Pulse Resp BP Pulse Ox 97.8 F 62 16 104/54 97 04/17/17 09:00 04/17/17 09:00 04/17/17 09:00 04/17/17 09:00 04/15/17 11:03 Assessment and Plan (1) Unspecified psychosis Current visit: Yes Status: Acute Risks, benefits, side effects, alternatives discussed w/pt: Yes Patient agreeable to treatment: Yes Qualifiers: Psychosis type: unspecified psychosis type Qualified Code(s): F29 - Unspecified psychosis not due to a substance or known physiological condition (2) Suicidal ideation Current visit: Yes Status: Acute (3) Intermittent explosive disorder Current visit: Yes Status: Acute Risks, benefits, side effects, alternatives discussed w/pt: Yes Patient agreeable to treatment: Yes (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 Baeza for primary health care and medication management services.)
[2017-04-17] MEDS ORDERED: Nicotine 21 MG PATCH.TD24 TD SCH (18:00)
[2017-04-17] MEDS: traZODone 50 MG TABLET PO PRN (20:19)
[2017-04-18 09:03] VITALS: BP 116/71
[2017-04-18] MEDS: risperiDONE 1 MG TABLET PO SCH (09:35)
--- NOTE | 2017-04-18 10:44 | Discharge Summary ---
Date of Encounter: 04/18/17 Time of Encounter: 09:30 Diagnosis - Discharge Diagnosis (1) Intermittent explosive disorder Status: Acute (2) Suicidal ideation Status: Acute (3) Unspecified psychosis Status: Acute Qualifiers: Psychosis type: unspecified psychosis type Qualified Code(s): F29 - Unspecified psychosis not due to a substance or known physiological condition (4) Mild intellectual disabilities Status: Chronic Medications - Discharge Medications Prescriptions: Benztropine [Cogentin] 1 mg PO BID #60 tab Divalproex (12 HR) [Depakote (12 HR)] 500 mg PO HS #30 hydrOXYzine pamoate [HydrOXYzine Pamoate] 25 mg PO TID PRN #90 PRN Reason: Anxiety risperiDONE [RisperDAL] 1 mg PO BID #60 tab Sertraline [Zoloft] 50 mg PO DAILY #30 tab traZODone [TraZODone] 50 mg PO HS PRN #30 tab PRN Reason: Insomnia Trazodone HCl 200 mg PO HS #60 Benztropine [Cogentin] 1 mg PO BID #60 tab 04/18/17 [Rx] Divalproex (12 HR) [Depakote (12 HR)] 500 mg PO HS #30 04/18/17 [Rx] Sertraline [Zoloft] 50 mg PO DAILY #30 tab 04/18/17 [Rx] Trazodone HCl 200 mg PO HS #60 04/18/17 [Rx] hydrOXYzine pamoate [HydrOXYzine Pamoate] 25 mg PO TID PRN #90 04/18/17 [Rx] risperiDONE [RisperDAL] 1 mg PO BID #60 tab 04/18/17 [Rx] traZODone [TraZODone] 50 mg PO HS PRN #30 tab 04/18/17 [Rx] 3 Allergy/AdvReac Type Severity Reaction Status Date / Time No Known Allergies Allergy Verified 04/15/17 11:23 Provider Date of admission: 04/15/17 12:53 Primary care physician: PCP NONE Discharging clinician: Chad Mars Assessment and Plan - Patient/Caregiver Discharge Instructions Activity: resume usual activities as tolerated Diet: regular diet - Follow up Plan Follow up with: Angelina Baeza MD [Partnered Physician] - 05/06/17 10:00 am (The above appointment is with Dr. Baeza for primary health care and medication management services.) Overall status at discharge: patient is back to baseline Disposition: Home Health Service Hospital Course Hospital course: Mr. Hernandez is a 21 year old male Was referred for hospitalization for agitation psychosis and suicidal ideations. Patient was hospitalized and after reviewing the symptom diagnoses and treatment plan and explained the risks benefits side effects alternative to treatment and consequences of no treatment getting informed consent from the patient patient was prescribed Risperdal 1 mg twice a day Depakote 500 mg at bedtime Zoloft was decreased to 50 mg daily and Vistaril 25 mg 3 times a day when necessary for anxiety Cogentin 1 mg twice a day. Patient responded well to the therapeutic milieu and started to notice improvement in his mood. He became more controlled compliant and cooperative. His psychotic symptoms subsided. He attended [place] stated in activities and learn coping skills and anger management skills and worked on a safety plan. He was denying any suicidal homicidal ideation or any psychotic symptoms at the time of discharge. And his discharge condition was stable Time spent discussing smoking cessation with patient: 3 to 10 minutes Does patient wish to continue nicotine replacement upon disc: No - Time Spent with Patient Total time spent providing and/or coordinating discharge services: Less than 30 minutes Quality - Multiple Antipsychotics Patient discharged on 2 or more antipsychotic medications: No Procedures - Procedures Procedures: Medication Management, Crisis Stabilization, Supportive Therapy, Group Therapy, Psychoeducational Therapy Mental Status Exam - Mental Status Exam Patient orientation: Yes Person, Yes Time, Yes Place Level of alertness: Alert Patient appearance: Appropriate, Well Groomed Behavior: calm, cooperative Psychomotor activity: Normal Eye contact: Maintains Eye Contact Mood description: Euthymic/stable Affect description: congruent with mood, full range Speech pattern: Normal rate, Normal rhythm, Normal tone Speech Volume: Normal Thought process: Linear, Goal Oriented Thought Content: No Suicidal ideation, No Homicidal ideation, No Overt delusions Perceptual Disturbances: No Auditory hallucinations, No Visual hallucinations Judgment: Limited Insight: Partial
[2017-04-18] MEDS ORDERED: Divalproex (12 HR) 500 MG TABLET PO SCH (21:00)
== END 2017-04-18 12:25 | disposition home health service (06) | DRG 750 ==
LOC: EMEROO 11:01 → SUATTDRO 12:53 → 1ANU 12:53
PROVIDERS: ADMIT Psychiatry & Neurology Psychiatry; ATTEND Psychiatry & Neurology Psychiatry